=== PATIENT | female | born 1950 | race African-American/Black ===

== ENCOUNTER 2018-07-23 15:16 | Emergency (ER) | payer MEDICARE, MEDICAID ==
[~2018-07-23] VITALS: Ht 165.1 cm; Wt 110.0 kg
[2018-07-23] MEDS ORDERED: ALBUTEROL (0.083%) 2.5MG/3ML NEB HHN STA (20:32)
[2018-07-23] MEDS ORDERED: IPRATROPIUM BROMIDE (0.02%) 0.5MG/2.5ML NEB HHN STA (20:32)
[2018-07-23] MEDS ORDERED: METHYLPREDNISOLONE SOD SUCC 125 MG/2 ML VIAL IV STA (20:32)
[2018-07-23 23:39] VITALS: BP 121/57
== END 2018-07-23 23:42 | disposition home or self-care (01) ==
LOC: ER 15:16
DX: J45.901 Unspecified asthma with (acute) exacerbation (principal); R03.0 Elevated blood-pressure reading, without diagnosis of hypertension; E11.9 Type 2 diabetes mellitus without complications
CPT/HCPCS: 71045; 93005; 94644; 96374; 99285; J2930; J7611

== ENCOUNTER 2018-08-26 12:34 | Inpatient (IN) | payer MEDICARE, MEDICAID ==
[~2018-08-26] VITALS: Ht 165.1 cm; Wt 103.6 kg
[2018-08-26] MEDS ORDERED: IPRATROPIUM BROMIDE (0.02%) 0.5MG/2.5ML NEB HHN STA (14:42)
[2018-08-26] MEDS ORDERED: ONDANSETRON HCL 4MG/2ML INJ IV STA (14:42)
[2018-08-26] MEDS ORDERED: ALBUTEROL (0.083%) 2.5MG/3ML NEB HHN STA (14:42)
[2018-08-26 15:07] LABS: CHLORIDE 104 mEq/L (98-107)
[2018-08-26 15:19] LABS: BASOPHILS % 0.2 % (0.0-2.0); EOSINOPHILS % 0.2 % (0.0-5.0); HEMATOCRIT. 39.8 % (36.0-48.0); HEMOGLOBIN. 13.1 g/dL (12.0-16.0); LYMPHOCYTES % 24.8 % (20.0-50.0); MEAN CORPUSCULAR HEMOGLOBIN 27.4 pg (28.0-32.0); MEAN PLATELET VOLUME 8.1 fl (7.4-10.4); MONOCYTES % 6.1 % (2.0-8.0); NEUTROPHILS % 68.7 % (40.0-76.0); PLATELET 202 x1000/uL (130-400); RED CELL DISTRIBUTION WIDTH 13.9 % (11.6-14.6)
[2018-08-26] MEDS ORDERED: ALBUTEROL (0.5%) 2.5MG/0.5ML NEB HHN ONE (15:45)
[2018-08-26] MEDS ORDERED: METHYLPREDNISOLONE SOD SUCC 125 MG/2 ML VIAL IV ONE (15:45)
[2018-08-26] MEDS ORDERED: ZOLPIDEM TARTRATE 5MG TABLET PO PRN (16:45)
[2018-08-26] MEDS ORDERED: ACETAMINOPHEN 325MG TABLET PO PRN (16:45)
[2018-08-26] MEDS ORDERED: POTASSIUM CHLORIDE 20MEQ TABLET SR PO NR (16:45)
[2018-08-26] MEDS ORDERED: IPRATROPIUM/ALBUTEROL 0.5-3(2.5)MG/3ML NEB HHN PRN (16:45)
[2018-08-26] MEDS ORDERED: ONDANSETRON HCL 4MG/2ML INJ IV PRN (16:45)
[2018-08-26] MEDS ORDERED: DEXTROSE 50% WATER 50ML SYRINGE IV PRN (16:45)
[2018-08-26] MEDS ORDERED: GUAIFENESIN-DM 200MG-20MG/10ML UDC PO PRN (17:00)
[2018-08-26] MEDS: METHYLPREDNISOLONE SOD SUCC 40 MG/ML VIAL IV SCH (17:54)
[2018-08-26] MEDS: BLOOD SUGAR DIAGNOSTIC STRIP TEST SCH ×2 (17:55→21:00)
[2018-08-26] MEDS: INSULIN LISPRO 100 UNITS/ML SUBCUT SCH ×2 (18:20→21:00)
[2018-08-26] MEDS ORDERED: IPRATROPIUM/ALBUTEROL 0.5-3(2.5)MG/3ML NEB HHN SCH (20:00)
[2018-08-26] MEDS: BUDESONIDE 0.5MG/2ML NEB HHN SCH (20:50)
[2018-08-26] MEDS ORDERED: HYDROCODONE/ACETAMINOPHEN 5/325MG TABLET PO ONE (21:30)
[2018-08-26 22:00] VITALS: BP 122/60
[2018-08-26] MEDS: GUAIFENESIN 600MG ER TABLET PO SCH (22:27)
[2018-08-26 22:33] VITALS: BP 122/60
[2018-08-26] MEDS ORDERED: IBUP-1649 PO (22:55)
[2018-08-26] MEDS ORDERED: ALBU4TAB6 PO (22:55)
[2018-08-26] MEDS ORDERED: ASPI-1159 PO (22:55)
[2018-08-27] VITALS: BP 122/83
[2018-08-27] MEDS: IPRATROPIUM/ALBUTEROL 0.5-3(2.5)MG/3ML NEB HHN SCH ×6 (00:44→20:47)
[2018-08-27 01:39] LABS: CLARITY URINE CLEAR (CLEAR); COLOR URINE YELLOW (YELLOW); KETONES URINE 1+ (NEGATIVE); LEUKOCYTE ESTERASE URINE NEGATIVE (NEGATIVE); NITRITE URINE NEGATIVE (NEGATIVE); OCCULT BLOOD URINE NEGATIVE (NEGATIVE); PROTEIN URINE NEGATIVE (NEGATIVE); SPECIFIC GRAVITY URINE 1.013 (1.005-1.030); UROBILINOGEN URINE 0.2 E.U./dL (0.2-1.0)
[2018-08-27] MEDS: METHYLPREDNISOLONE SOD SUCC 40 MG/ML VIAL IV SCH ×2 (01:51→09:11)
[2018-08-27 01:56] LABS: *AMPHETAMINES SCREEN URINE NEGATIVE (NEGATIVE); *BARBITURATES SCREEN URINE NEGATIVE (NEGATIVE); *BENZODIAZEPINES SCREEN URINE NEGATIVE (NEGATIVE)
[2018-08-27 01:57] LABS: *COCAINE SCREEN URINE NEGATIVE (NEGATIVE); CANNABINOID URINE SCREEN NEGATIVE (NEGATIVE); METHADONE URINE SCREEN NEGATIVE (NEGATIVE); OPIATES URINE SCREEN NEGATIVE (NEGATIVE); PHENCYCLIDINE URINE SCREEN NEGATIVE (NEGATIVE)
[2018-08-27 04:33] VITALS: BP 115/72
[2018-08-27] MEDS: BLOOD SUGAR DIAGNOSTIC STRIP TEST SCH ×4 (06:37→19:56)
[2018-08-27 06:38] LABS: BASOPHILS % 0.1 % (0.0-2.0); HEMATOCRIT. 35.2 % (36.0-48.0); MEAN CORPUSCULAR HEMOGLOBIN 27.8 pg (28.0-32.0); MEAN CORPUSCULAR VOLUME 81.8 fL (81.0-99.0); MEAN PLATELET VOLUME 8.4 fl (7.4-10.4); MONOCYTES % 2.9 % (2.0-8.0); PLATELET 209 x1000/uL (130-400); RED BLOOD CELL COUNT 4.31 mill/uL (4.2-5.4); RED CELL DISTRIBUTION WIDTH 13.9 % (11.6-14.6)
[2018-08-27 06:51] LABS: CHLORIDE 106 mEq/L (98-107)
[2018-08-27] MEDS: BUDESONIDE 0.5MG/2ML NEB HHN SCH ×2 (07:37→20:47)
[2018-08-27 08:00] VITALS: BP 105/63
[2018-08-27] MEDS: INSULIN LISPRO 100 UNITS/ML SUBCUT SCH ×4 (08:15→20:25)
[2018-08-27] MEDS: GUAIFENESIN 600MG ER TABLET PO SCH ×2 (09:11→20:22)
[2018-08-27] MEDS ORDERED: MONT10TA24 PO (09:54)
[2018-08-27] MEDS ORDERED: METF-414 PO (09:55)
[2018-08-27] MEDS ORDERED: LORA10TA7 PO (09:55)
[2018-08-27 12:00] VITALS: BP 136/70
[2018-08-27 16:00] VITALS: BP 105/55
[2018-08-27] MEDS: MONTELUKAST SODIUM 10MG TABLET PO SCH (17:38)
[2018-08-27 20:00] VITALS: BP 122/67
[2018-08-27] MEDS: INSULIN GLARGINE UD 100 UNITS/ML SYR SUBCUT SCH (22:09)
[2018-08-28] VITALS: BP 115/67
[2018-08-28] MEDS: IPRATROPIUM/ALBUTEROL 0.5-3(2.5)MG/3ML NEB HHN SCH ×5 (00:38→15:56)
[2018-08-28 04:00] VITALS: BP 95/46
[2018-08-28] MEDS: BLOOD SUGAR DIAGNOSTIC STRIP TEST SCH ×3 (06:26→17:26)
[2018-08-28 06:33] LABS: BASOPHILS % 0.1 % (0.0-2.0); HEMOGLOBIN. 11.2 g/dL (12.0-16.0); LYMPHOCYTES % 22.2 % (20.0-50.0); MEAN CORPUSCULAR HEMOGLOBIN 27.8 pg (28.0-32.0); MEAN CORPUSCULAR VOLUME 82.1 fL (81.0-99.0); MEAN PLATELET VOLUME 8.8 fl (7.4-10.4); MONOCYTES % 6.3 % (2.0-8.0); NEUTROPHILS % 71.4 % (40.0-76.0); PLATELET 192 x1000/uL (130-400); RED BLOOD CELL COUNT 4.02 mill/uL (4.2-5.4); RED CELL DISTRIBUTION WIDTH 14.1 % (11.6-14.6)
[2018-08-28] MEDS: BUDESONIDE 0.5MG/2ML NEB HHN SCH (07:44)
[2018-08-28] MEDS: INSULIN LISPRO 100 UNITS/ML SUBCUT SCH ×3 (08:46→17:26)
[2018-08-28] MEDS: GUAIFENESIN 600MG ER TABLET PO SCH (08:47)
[2018-08-28] MEDS ORDERED: PREDNISONE 20MG TABLET PO SCH (09:00)
[2018-08-28] MEDS: INSULIN GLARGINE UD 100 UNITS/ML SYR SUBCUT SCH (10:13)
[2018-08-28 12:50] VITALS: BP 104/57
[2018-08-28] MEDS: MONTELUKAST SODIUM 10MG TABLET PO SCH (17:00)
[2018-08-28] MEDS ORDERED: P20 MT (17:02)
[2018-08-28] MEDS ORDERED: BENZ-16 MT (17:02)
[2018-08-28] MEDS ORDERED: PROT20 MT (17:02)
[2018-08-28] MEDS ORDERED: FLUT1DIS2 INH (17:04)
[2018-08-28 17:19] VITALS: BP 157/80
[2018-08-28 18:11] VITALS: BP 157/80
== END 2018-08-28 21:53 | disposition home or self-care (01) | DRG 202 ==
LOC: ER 12:34 → 6WST 15:36 → EDBEDREQ 15:54 → ENRESERV 20:17
PROVIDERS: ADMIT Internal Medicine; ATTEND Internal Medicine
DX: J45.901 Unspecified asthma with (acute) exacerbation (principal); J44.1 Chronic obstructive pulmonary disease with (acute) exacerbation; E44.1 Mild protein-calorie malnutrition; M94.0 Chondrocostal junction syndrome [Tietze]; E87.6 Hypokalemia; E11.9 Type 2 diabetes mellitus without complications; E66.9 Obesity, unspecified; E86.0 Dehydration; Z68.38 Body mass index [BMI] 38.0-38.9, adult; Z88.1 Allergy status to other antibiotic agents; Z88.2 Allergy status to sulfonamides
CPT/HCPCS: 36415; 71045; 80048; 80061; 80305; 82962; 83036; 83880; 84439; 84443; 84484; 87804; 93005; 93306; 93970; 94640; 96374; 99285; J1815; J2405; J2920; J2930; J7512; J7611; J7620; J7626

== ENCOUNTER 2019-03-24 11:44 | Emergency (ER) | payer MEDICARE, MEDICAID ==
[~2019-03-24] VITALS: Ht 165.1 cm; Wt 98.0 kg
[~2019-03-24 11:44] MED LIST: ALBU4TAB6 PO; ASPI-1393 PO; BENZ-16 MT; FLUT1DIS2 INH; LORA10TA7 PO; METF-414 PO; MONT10TA24 PO; P20 MT; PROT20 MT
[2019-03-24 14:56] VITALS: BP 140/90
== END 2019-03-24 14:58 | disposition home or self-care (01) ==
LOC: ER 13:46
DX: R09.81 Nasal congestion (principal); J45.909 Unspecified asthma, uncomplicated; E11.9 Type 2 diabetes mellitus without complications; I10 Essential (primary) hypertension; Z79.82 Long term (current) use of aspirin; Z79.899 Other long term (current) drug therapy; Z88.2 Allergy status to sulfonamides
CPT/HCPCS: 99282

== ENCOUNTER 2020-08-03 11:14 | Inpatient (IN) | payer MEDICARE, MEDICAID ==
[~2020-08-03] VITALS: Ht 165.1 cm; Wt 106.6 kg
[~2020-08-03 11:14] MED LIST changes: -ASPI-1393 PO; +ASPI-1497 PO; -MONT10TA24 PO; +MONT10TA32 PO
[2020-08-03 14:09] LABS: CLARITY URINE CLEAR (CLEAR); COLOR URINE YELLOW (YELLOW); KETONES URINE NEGATIVE (NEGATIVE); LEUKOCYTE ESTERASE URINE NEGATIVE (NEGATIVE); NITRITE URINE NEGATIVE (NEGATIVE); OCCULT BLOOD URINE NEGATIVE (NEGATIVE); PH URINE 6.5 (4.5-8.0); PROTEIN URINE TRACE (NEGATIVE); SPECIFIC GRAVITY URINE 1.012 (1.005-1.030); UROBILINOGEN URINE 0.2 E.U./dL (0.2-1.0)
[2020-08-03 14:53] LABS: BASOPHILS % 0.5 % (0.0-2.0); HEMATOCRIT. 35.9 % (36.0-48.0); HEMOGLOBIN. 11.9 g/dL (12.0-16.0); LYMPHOCYTES % 29.7 % (20.0-50.0); MEAN CORPUSCULAR HEMOGLOBIN 27.1 pg (28.0-32.0); MEAN CORPUSCULAR VOLUME 81.6 fL (81.0-99.0); MEAN PLATELET VOLUME 8.5 fl (7.4-10.4); MONOCYTES % 10.7 % (2.0-8.0); NEUTROPHILS % 58.1 % (40.0-76.0); PLATELET 238 x1000/uL (130-400); RED CELL DISTRIBUTION WIDTH 14.1 % (11.6-14.6)
[2020-08-03 15:00] LABS: CHLORIDE 107 mEq/L (98-107)
[2020-08-03 15:06] LABS: PROTHROMBIN TIME 10.4 sec (9.6-11.0)
[2020-08-03 15:08] LABS: CREATINE KINASE 162 IU/L (26-192)
[2020-08-03] MEDS ORDERED: ONDANSETRON HCL 4MG/2ML INJ IV PRN (19:15)
[2020-08-03] MEDS ORDERED: DIPHENHYDRAMINE 50MG/ML VIAL IV PRN (19:15)
[2020-08-03] MEDS ORDERED: CEFTRIAXONE 1 G PREMIX 50 ML IV SCH (19:15)
[2020-08-03] MEDS ORDERED: CLONIDINE 0.1MG TABLET PO PRN (19:15)
[2020-08-03] MEDS ORDERED: ACETAMINOPHEN 325MG TABLET PO PRN (19:15)
[2020-08-03] MEDS ORDERED: AZITHROMYCIN 500 MG in DEXT 5% WATER 250 ML IV SCH (20:00)
[2020-08-03] MEDS ORDERED: IPRATROPIUM/ALBUTEROL 0.5-3(2.5)MG/3ML NEB HHN PRN (21:00)
[2020-08-03] MEDS: PREDNISONE 20MG TABLET PO SCH (22:50)
[2020-08-03] MEDS: FAMOTIDINE 20MG TABLET PO SCH (22:50)
[2020-08-03] MEDS: ENOXAPARIN 30MG/0.3ML SYR SUBCUT SCH (22:51)
[2020-08-03] MEDS ORDERED: HYDROCODONE/ACETAMINOPHEN 5/325MG TABLET PO PRN (23:15)
[2020-08-03] MEDS ORDERED: DEXTROSE 50% WATER 50ML SYRINGE IV PRN (23:15)
[2020-08-03] MEDS ORDERED: BENZONATATE 100MG CAPSULE PO PRN (23:30)
[2020-08-04] VITALS (7 sets, daily range): BP systolic 104–140; BP diastolic 52–78
[2020-08-04] MEDS: CEFTRIAXONE 1,000 MG in DEXTROSE 5% WATER 50 ML IV SCH ×2 (00:30→23:17)
[2020-08-04] MEDS: BLOOD SUGAR DIAGNOSTIC STRIP TEST SCH ×4 (07:40→20:54)
[2020-08-04 07:57] LABS: BASOPHILS % 0.2 % (0.0-2.0); EOSINOPHILS % 0.6 % (0.0-5.0); HEMATOCRIT. 34.3 % (36.0-48.0); HEMOGLOBIN. 11.5 g/dL (12.0-16.0); LYMPHOCYTES % 13.4 % (20.0-50.0); MEAN CORPUSCULAR HEMOGLOBIN 27.6 pg (28.0-32.0); MEAN CORPUSCULAR VOLUME 82.1 fL (81.0-99.0); MEAN PLATELET VOLUME 8.6 fl (7.4-10.4); MONOCYTES % 3.6 % (2.0-8.0); NEUTROPHILS % 82.2 % (40.0-76.0); PLATELET 232 x1000/uL (130-400); RED BLOOD CELL COUNT 4.17 mill/uL (4.2-5.4); RED CELL DISTRIBUTION WIDTH 13.7 % (11.6-14.6)
[2020-08-04 08:07] LABS: CHLORIDE 107 mEq/L (98-107)
[2020-08-04 08:17] LABS: LDL CHOLESTEROL 38 mg/dL (5-100)
[2020-08-04] MEDS: INSULIN LISPRO 100 UNITS/ML SUBCUT SCH ×4 (08:18→22:45)
[2020-08-04] MEDS: PREDNISONE 20MG TABLET PO SCH (08:19)
[2020-08-04] MEDS: ENOXAPARIN 30MG/0.3ML SYR SUBCUT SCH ×2 (08:19→21:08)
[2020-08-04] MEDS: FAMOTIDINE 20MG TABLET PO SCH ×2 (08:19→21:08)
[2020-08-04 08:20] LABS: HDL CHOLESTEROL 42 mg/dL (40-59)
[2020-08-05 00:06] VITALS: BP 106/64
[2020-08-05 04:00] VITALS: BP 119/62
[2020-08-05] MEDS: BLOOD SUGAR DIAGNOSTIC STRIP TEST SCH ×2 (06:41→12:29)
[2020-08-05] MEDS: ENOXAPARIN 30MG/0.3ML SYR SUBCUT SCH (08:00)
[2020-08-05] MEDS: PREDNISONE 20MG TABLET PO SCH (10:13)
[2020-08-05] MEDS: FAMOTIDINE 20MG TABLET PO SCH (10:13)
[2020-08-05] MEDS: INSULIN LISPRO 100 UNITS/ML SUBCUT SCH ×2 (10:14→12:50)
[2020-08-05 14:43] VITALS: BP 144/70
== END 2020-08-05 15:55 | disposition home or self-care (01) | DRG 177 ==
LOC: ER 11:29 → 7WST 19:01 → EDBEDREQ 19:04 → EDBEDREQSVC 19:04 → ENRESERV 20:36
PROVIDERS: ADMIT Internal Medicine; ATTEND Internal Medicine
DX: U07.1 COVID-19 (principal); J96.00 Acute respiratory failure, unspecified whether with hypoxia or hypercapnia; J12.82 Pneumonia due to coronavirus disease 2019; J45.901 Unspecified asthma with (acute) exacerbation; J98.11 Atelectasis; E11.9 Type 2 diabetes mellitus without complications; E66.01 Morbid (severe) obesity due to excess calories; I10 Essential (primary) hypertension; Z68.39 Body mass index [BMI] 39.0-39.9, adult; Z88.2 Allergy status to sulfonamides; Z88.8 Allergy status to other drugs, medicaments and biological substances; Z79.899 Other long term (current) drug therapy; Z82.49 Family history of ischemic heart disease and other diseases of the circulatory system
CPT/HCPCS: 36415; 71045; 80053; 80061; 81003; 82550; 82728; 82962; 83036; 83605; 83615; 83880; 84145; 84443; 84484; 85025; 85384; 86140; 93005; 93970; 99285; C1893; J0456; J0696; J1650; J1815; J7060; J7512; U0003

== ENCOUNTER 2022-11-12 16:28 | Inpatient (IN) | payer MEDICARE, MEDICAID, OTHER ==
[~2022-11-12] VITALS: Ht 165.1 cm; Wt 106.6 kg
[~2022-11-12 16:28] MED LIST changes: +MONT-39 PO; -MONT10TA32 PO; -P20 MT; -PROT20 MT
[2022-11-12] MEDS ORDERED: MORPHINE SULFATE 4 MG/ML CPJ (NOT FOR IM USE) IV STA (19:51)
[2022-11-12] MEDS ORDERED: ONDANSETRON HCL 4MG/2ML INJ IV STA (19:51)
[2022-11-12] MEDS ORDERED: SODIUM CHLORIDE 0.9% 1,000 ML IV ONE (20:00)
[2022-11-12] MEDS ORDERED: ETOMIDATE 2MG/ML 10ML VIAL IV ONE (20:00)
[2022-11-12] MEDS ORDERED: MORPHINE SULFATE 4 MG/ML CPJ (NOT FOR IM USE) IV ONE (20:00)
[2022-11-12] MEDS ORDERED: HYDRALAZINE 20MG/ML VIAL IV ONE (22:45)
[2022-11-12 23:42] LABS: BASOPHILS % 0.2 % (0.0-2.0); EOSINOPHILS % 0.1 % (0.0-5.0); HEMATOCRIT. 37.9 % (36.0-48.0); HEMOGLOBIN. 12.4 g/dL (12.0-16.0); LYMPHOCYTES % 11.1 % (20.0-50.0); MEAN CORPUSCULAR HEMOGLOBIN 27.2 pg (28.0-32.0); MEAN CORPUSCULAR VOLUME 83.3 fL (81.0-99.0); MEAN PLATELET VOLUME 7.9 fl (7.4-10.4); NEUTROPHILS % 84.6 % (40.0-76.0); PLATELET 299 x1000/uL (130-400); RED BLOOD CELL COUNT 4.55 mill/uL (4.2-5.4); RED CELL DISTRIBUTION WIDTH 14.5 % (11.6-14.6)
[2022-11-12 23:47] LABS: PROTHROMBIN TIME 10.3 sec (9.6-11.0)
[2022-11-12 23:48] LABS: CHLORIDE 108 mEq/L (98-107)
[2022-11-13] MEDS ORDERED: HYDROMORPHONE HCL/PF 2MG/ML CPJ IV ONE (00:30)
[2022-11-13] MEDS ORDERED: ONDANSETRON HCL 4MG/2ML INJ IV ONE (00:30)
[2022-11-13] MEDS ORDERED: ETOMIDATE 2MG/ML 10ML VIAL IV ONE (01:00)
[2022-11-13] MEDS ORDERED: CLONIDINE 0.1MG TABLET PO PRN (01:15)
[2022-11-13 03:03] VITALS: BP 193/73
[2022-11-13 04:00] VITALS: BP 193/73
[2022-11-13] MEDS ORDERED: DEXTROSE 50% WATER 50ML SYRINGE IV PRN (04:00)
[2022-11-13] MEDS ORDERED: HYDROCODONE/ACETAMINOPHEN 10/325MG TABLET PO PRN (04:00)
[2022-11-13] MEDS: BLOOD SUGAR DIAGNOSTIC STRIP TEST SCH ×3 (07:59→17:17)
[2022-11-13 08:00] VITALS: BP 126/64
[2022-11-13] MEDS: INSULIN LISPRO 100 UNITS/ML SUBCUT SCH ×3 (08:15→17:52)
[2022-11-13] MEDS: METFORMIN HCL 500MG TABLET PO SCH ×2 (08:17→17:49)
[2022-11-13] MEDS ORDERED: LOSARTAN POTASSIUM 50 MG TABLET PO SCH (09:00)
[2022-11-13] MEDS ORDERED: AMLODIPINE 10MG TABLET PO SCH (09:00)
[2022-11-13] MEDS ORDERED: PROPOFOL 200MG/20ML VIAL IV ONE (12:23)
[2022-11-13] MEDS ORDERED: FENTANYL CITRATE/PF 50MCG/ML 2ML VIAL ONE (12:23)
[2022-11-13] MEDS ORDERED: DEXAMETHASONE 4MG/ML 1ML VIAL ONE (13:14)
[2022-11-13] MEDS ORDERED: ONDANSETRON HCL 4MG/2ML INJ ONE (13:14)
[2022-11-13] MEDS ORDERED: METOCLOPRAMIDE HCL 10MG/2ML VIAL ONE (13:14)
[2022-11-13] MEDS ORDERED: ALBUTEROL (0.083%) 2.5MG/3ML NEB HHN NR (13:15)
[2022-11-13] MEDS ORDERED: ONDANSETRON HCL 4MG/2ML INJ IV PRN (13:30)
[2022-11-13] MEDS ORDERED: HYDROMORPHONE HCL/PF 2MG/ML CPJ IV PRN (13:30)
[2022-11-13] MEDS ORDERED: FENTANYL CITRATE/PF 50MCG/ML 2ML VIAL IV PRN (13:30)
[2022-11-13 16:00] VITALS: BP 152/71
[2022-11-13 18:18] VITALS: BP 144/76
== END 2022-11-13 18:43 | disposition home or self-care (01) | DRG 563 ==
LOC: ER 16:28 → 6EST 23:25 → EDBEDREQTM 23:37 → EDBEDREQ 23:37 → ENRESERV 11-13 00:49
PROVIDERS: ADMIT Internal Medicine; ATTEND Internal Medicine
PROC: 0PSCXZZ Reposition Right Humeral Head, External Approach (ICD-10-PCS; principal; 2022-11-13)
DX: S43.014A Anterior dislocation of right humerus, initial encounter (principal); S42.251A Displaced fracture of greater tuberosity of right humerus, initial encounter for closed fracture; E11.65 Type 2 diabetes mellitus with hyperglycemia; E66.9 Obesity, unspecified; Z68.39 Body mass index [BMI] 39.0-39.9, adult; I10 Essential (primary) hypertension; Z20.822 Contact with and (suspected) exposure to COVID-19; J45.909 Unspecified asthma, uncomplicated; Z79.84 Long term (current) use of oral hypoglycemic drugs; Z82.49 Family history of ischemic heart disease and other diseases of the circulatory system; Z88.2 Allergy status to sulfonamides; Z88.8 Allergy status to other drugs, medicaments and biological substances; Z79.899 Other long term (current) drug therapy; W01.0XXA Fall on same level from slipping, tripping and stumbling without subsequent striking against object, initial encounter; Y93.01 Activity, walking, marching and hiking; Y92.89 Other specified places as the place of occurrence of the external cause; Y99.8 Other external cause status
CPT/HCPCS: 36415; 73030; 73060; 76000; 80053; 82962; 83036; 85025; 86850; 86900; 87426; 94640; 99285; J0360; J1100; J1170; J1815; J2270; J2405; J2704; J2765; J3010; J3490; J7030; L3670

== ENCOUNTER 2022-12-03 14:14 | Emergency (ER) | payer MEDICARE ==
[~2022-12-03] VITALS: Ht 165.1 cm; Wt 106.0 kg
[~2022-12-03 14:14] MED LIST changes: +HYDR-4001 MT
[2022-12-03 14:21] VITALS: BP 123/94; PULSE 109; RESP 20; TEMP 98.1; O2SAT 99
== END 2022-12-03 16:01 | disposition home or self-care (01) ==
LOC: ER 14:14
DX: G62.9 Polyneuropathy, unspecified (principal); E11.9 Type 2 diabetes mellitus without complications; I10 Essential (primary) hypertension; J45.909 Unspecified asthma, uncomplicated; Z88.2 Allergy status to sulfonamides; Z98.890 Other specified postprocedural states
CPT/HCPCS: 99281